=== PATIENT | male | born 1950 | race Caucasian/White ===

== ENCOUNTER 2024-07-08 13:58 | Outpatient (CLI) | payer MEDICARE, OTHER, SELFPAY ==
--- NOTE | 2024-07-08 14:30 | MR_ITS ---
WS: [id number] MRI CERVICAL SPINE NONCONTRAST AND CONTRAST TECHNIQUE: Sagittal T1, T2 and STIR imaging. Axial T2, gradient, and fiesta imaging. Post gadolinium imaging obtained with fat saturation technique. CLINICAL INFORMATION: Neck Pain COMPARISON: None. FINDINGS: Straightening of the normal cervical lordosis in the upper cervical spine. Slight anterolisthesis C4 on C5, C5 on C6, C6 on C7, and C7 on T1. Cord signal is normal. Mild central canal stenosis C5-C7. No abnormal gadolinium enhancement. C2-C3: Mild facet arthropathy. Mild LEFT greater than RIGHT bony foraminal narrowing. C3-C4: Minimal disc bulge and osteophytic ridging. Moderate LEFT and mild RIGHT bony foraminal narrow ing. Moderate facet arthropathy worse on the LEFT. C4-C5: Minimal anterolisthesis. Moderate LEFT and mild RIGHT bony foraminal narrowing. Moderate facet arthropathy. C5-C6: Grade 1 anterolisthesis. Moderate facet arthropathy. Mild bilateral foraminal narrowing. Mild central canal stenosis. C6-C7: Mild central canal stenosis. Moderate LEFT and mild RIGHT foraminal narrowing. C7-T1: Mild central canal stenosis. Tiny central protrusion. Severe LEFT and moderate RIGHT foraminal narrowing. Shallow disc protrusions in the upper thoracic spine at T1-2 and T2-3. Mild central canal stenosis at T2-3. Visualized brain stem structures: Normal. Prevertebral soft tissues: Normal. MR/MR cervical spine wo/w [id number] IMPRESSION: 1. Straightening of the normal cervical lordosis with slight anterolisthesis C 4 on C5, C5 on C6, and C6 on C7. 2. Mild central canal stenosis C5-C6 C6-C7 and C7-T1 with slight contact of th e cervical cord at C7-T1. 3. Multilevel bony foraminal narrowing described above moderate at LEFT C3-4, LEFT C4-5, LEFT C5-6 and severe at LEFT C7-T1 4. Mild central canal stenosis T2-3 with a shallow central protrusion.
[2024-07-08] MEDS: gadobenate dimeglumine 20 mL vial IV (15:16)
== END 2024-07-08 13:59 | disposition home or self-care (01) ==
LOC: RAD 14:01
PROVIDERS: Visit Provider Orthopaedic Surgery
DX: M48.02 Spinal stenosis, cervical region (principal)
CPT/HCPCS: 72156; A9577

== ENCOUNTER → 2024-08-01 14:15 | Outpatient (BNVA) | payer MEDICARE, OTHER, SELFPAY | PROVIDERS: Visit Provider Orthopaedic Surgery | DX: Z01.818 Encounter for other preprocedural examination (principal); M47.22 Other spondylosis with radiculopathy, cervical region; M47.12 Other spondylosis with myelopathy, cervical region | CPT/HCPCS: 36415; 80053; 81001; 85025; 99214 ==

== ENCOUNTER → 2024-09-20 11:45 | Outpatient (BNVA) | payer MEDICARE, OTHER, SELFPAY | PROVIDERS: Visit Provider Family Medicine | DX: Z01.818 Encounter for other preprocedural examination (principal) | CPT/HCPCS: 80053; 81003; 85025 ==

== ENCOUNTER 2024-10-02 10:15 | Observation (INO) | payer MEDICARE, OTHER, SELFPAY ==
[2024-10-02] VITALS (25 sets, daily range): BP systolic 89–191; BP diastolic 49–159; PULSE 63–100; RESP 16–21; TEMP 36.2–37; O2SAT 91–99; BMI 45.8
--- NOTE | 2024-10-02 | XR_ITS ---
WS: [id number] Cervical spine, C-arm fluoroscopy views, 10/02/2024 Clinical Data: CHELLE PICS Comparison: Cervical spine, 06/04/2024 Findings: Dr. Angulo performed an anterior cervical disc fusion. XR/XR cervical spine 3V* [id number] Impression: Anterior cervical disc fusion
--- NOTE | 2024-10-02 05:57 | ANES.PREANE2 ---
Pre-Anesthetic Assessment Height/Weight: Height 6 ft Preop Diagnosis: Cervical spondylosis Operation Date: 10/02/24 07:00 Proposed Procedures p Anterior Cervical Discectomy & Fusion ACDF w/ Anterior Interbody Fusion w/ Cage w/ Instrumentation w/ Allograft w/ Navigation(Not Applicable) - Rhett Angulo, DO Was Beta Crispin taken within 24 hours: N/A Was Clonidine taken within 24 hours: N/A Social No alcohol and No tobacco Exam alert, oriented x 3, clear to auscultation bilaterally and regular rate & rhythm Airway Submandibular: within normal limits Cervical ROM: within normal limits Mallampati: Class III Dentition: full Comments: Comments: Implants on top Anesthetic Plan ASA status: 3 Anesthesia: General Other: No prior issues with anesthesia NPO since yesterday IMELDA on CPAP Hypertension on lisinopril?HCTZ and diltiazem Labs reviewed 09/20/2024 and acceptable for procedure METs greater than 4 Plan for GETA Medications/Allergies Home Medications Medication Instructions Recorded Confirmed Last Taken Type allopurinol 300 mg tablet 300 mg PO DAILY 08/01/24 10/02/24 10/02/24 History diltiazem HCl 240 mg capsule,24 240 mg PO DAILY 08/01/24 10/02/24 10/01/24 History hr,extended release doxycycline hyclate 20 mg tablet 20 mg PO BID 08/01/24 10/02/24 10/02/24 History gabapentin 400 mg capsule 400 mg PO BID 08/01/24 10/02/24 10/02/24 History lisinopril 20 1 tab PO DAILY 08/01/24 10/01/24 10/01/24 History mg-hydrochlorothiazide 12.5 mg tablet meloxicam 15 mg tablet 15 mg PO DAILY 08/01/24 10/01/24 09/26/24 History metronidazole 0.75 % topical cream 1 applic topical DAILY 08/01/24 10/01/24 Unknown History tamsulosin 0.4 mg capsule 0.4 mg PO DAILY 08/01/24 10/01/24 10/01/24 History finasteride 5 mg tablet 5 mg PO DAILY 09/20/24 10/02/24 10/02/24 History Bone Growth Stimulator #1 ea 09/30/24 Unknown Rx Allergies Allergy/AdvReac Type Severity Reaction Status Date / Time No Known Allergies Allergy Verified 09/20/24 11:28 [facility] Anesthesia Social History Smoking and tobacco/nicotine status: former use of tobacco/nicotine Data Anesthesia Cardiac Studies: No Data to Display
--- NOTE | 2024-10-02 06:11 | W.PM.OPSUD ---
Surgery/Procedure H&P Update DATE OF PROCEDURE: October 02, 2024 DATE H&P PERFORMED: 09/20/24 H&P UPDATE INFORMATION: I have reviewed H&P completed within last 30 days, I have examined patient prior to procedure and No changes to prior documentation PREOP DIAGNOSIS: Cervical radiculopathy PLANNED PROCEDURE: Operation Date: 10/02/24 07:00 Proposed Procedures p Anterior Cervical Discectomy & Fusion ACDF w/ Anterior Interbody Fusion w/ Cage w/ Instrumentation w/ Allograft w/ Navigation(Not Applicable) - Rhett Angulo DO
[2024-10-02] MEDS: sodium chloride 0.9% 1,000 ML 30 ML IV (06:25)
[2024-10-02] MEDS: ceFAZolin 3,000 MG in sodium chloride 0.9% (plus) 100 ML 200 MG IV (07:00)
[2024-10-02] MEDS: lidocaine-epi 1% 20 mL INJ INJECTION (08:26)
--- NOTE | 2024-10-02 09:54 | PM.OP ---
Operative Report Date of procedure: October 02, 2024 Pre-op diagnosis: Cervical radiculopathy Post-op diagnosis: same Procedure done: 1. Anterior diskectomy C5/6 2. Anterior discectomy C6/7 3. Insertion of cage C5/6 4. Insertion of Cage C6/7 5. Instrumentation with anterior plate from C5-C7 6. Use of allograft Surgeon: Rhett Angulo DO Estimated blood loss (mL): 50 Procedure: 1. Anterior diskectomy C5/6 2. Anterior discectomy C6/7 3. Insertion of cage C5/6 4. Insertion of Cage C6/7 5. Instrumentation with anterior plate from C5-C7 6. Use of allograft The patient was taken to the operating room, where he underwent general endotracheal anesthesia without complications. He was then positioned supine on the operating table, and all areas of impingement were well padded. The arms were carefully padded and tucked at his sides. A roll was placed between the shoulder blades.. An x-ray was done to determine the appropriate level for the skin incision. The entire neck was then sterilely prepped and draped in the usual fashion. Neuromonitoring was attached prior to prepping. A transverse skin incision was made and carried down to the platysma muscle. This was then split in line with its fibers. Blunt dissection was carried down medial to the carotid sheath and lateral to the trachea and esophagus until the anterior cervical spine was visualized. A needle was placed into a disc and an x-ray was done to determine its location. The longus colli muscles were then elevated bilaterally with the electrocautery unit. Self-retaining retractors were placed deep to the longus colli muscle. Attention was brought to the C5/6 level that was confirmed on x-ray. A caspar pin was placed into the C5 vertebrae and the C6 vertebrae. The disk space was then distracted. The microscope was then brought in. A radical anterior discectomies were performed at C5/6. This included complete removal of the anterior annulus, nucleus, and posterior annulus. The posterior longitudinal ligament was removed as were the posterior osteophytes. Foraminotomies were then accomplished bilaterally. This was done using a high speed sangita, kerrison rongeurs and curretes Once all of this was accomplished, the curved currette was used to check for any residual compression. The central canal was wide open as were the foramen. A high-speed bur was used to remove the cartilaginous endplates above and below the interspace. Bleeding cancellous bone was exposed. The disc space were measured and appropriate size cage were placed sterilely onto the field. Allograft graft was packed into the cages. The cage was then placed and there was good juxtaposition against the bleeding decorticated surfaces and good distraction of each interspace. Attention was brought to the next interspace. The Otterbein pins were removed. Bone wax was used to prevent any bleeding from occurring at the pin sites. Attention was brought to the C6/7 level that was confirmed on x-ray. A caspar pin was placed into the C6 vertebrae and the C7 vertebrae. The disk space was then distracted. The microscope was then brought in. A radical anterior discectomies were performed at C6/7. This included complete removal of the anterior annulus, nucleus, and posterior annulus. The posterior longitudinal ligament was removed as were the posterior osteophytes. Foraminotomies were then accomplished bilaterally. This was done using a high speed sangita, kerrison rongeurs and curretes Once all of this was accomplished, the curved currette was used to check for any residual compression. The central canal was wide open as were the foramen. A high-speed bur was used to remove the cartilaginous endplates above and below the interspace. Bleeding cancellous bone was exposed. The disc space were measured and appropriate size cage were placed sterilely onto the field. Allograft graft was packed into the cages. The cage was then placed and there was good juxtaposition against the bleeding decorticated surfaces and good distraction of each interspace. The Otterbein pins were removed. Bone wax was used to prevent any bleeding from occurring at the pin sites. The appropriate size anterior cervical locking plate was chosen and bent into gentle lordosis. Two screws were then placed into each of the vertebral bodies at C5, C6, and C7. There was excellent purchase. A final x-ray was done confirming good position of the hardware and Cages. The locking screws were then applied, also with excellent purchase. Following a final copious irrigation, there was good hemostasis and no dural leaks. The carotid pulse was strong. The wounds were then closed in layers using 2-0 Vicryl suture for the platysma muscle, 2-0 Vicryl suture for the subcutaneous tissue, and 4-0 monocryl suture in a subcuticular skin closure. Glue was placed followed by application of a sterile dressing. The drain was hooked to bulb suction. A soft collar was applied. The patient was then carefully returned to the supine position on his hospital bed where he was reversed and extubated and taken to the recovery room having tolerated the procedure well.
--- NOTE | 2024-10-02 11:12 | ANE.PACU2 ---
Inpatient post-anesthesia follow up: Airway intact: Yes Vital signs: Temperature 98.0 F Pulse Rate 72 Respiratory Rate 17 Blood Pressure 150/120 Pulse Oximetry 94 Oxygen Delivery Me thod Nasal Cannula Oxygen Flow Rate 1 Fraction of Inspir ed Oxygen Hydration adequate: Yes Nausea and vomiting: No Pain level: 1 Mental status: Baseline
[2024-10-02] MEDS: ketorolac 30 mg/mL INJ IVP (12:11)
[2024-10-02] MEDS: lactated ringers 1,000 ML 90 ML IV ×2 (12:11→22:37)
[2024-10-02] MEDS: HYDROcodone-acetaminophen 5-325 mg Tablet PO ×2 (12:59→18:30)
[2024-10-02] MEDS: ceFAZolin 2,000 mg SDV 2000 MG IVP ×2 (15:45→22:37)
--- NOTE | 2024-10-02 16:55 | PM.CONSULT ---
Providers/Reason For Consult Consulting Physician/Specialty*: Orthopedic Reason for Consult*: Hypertension Attending Physician: Rhett Angulo DO History of Present Illness History of Present Illness Brendon Hooper is a 74 year old male with a past medical history of hypertension, BPH, who presents [facility] for anterior discectomy C5/C6/c7, insertion of cage, use of allograft, hospitalist team was consulted due to elevated blood pressure. Patient reports a history of hypertension, he takes Cardizem, lisinopril hydrochlorothiazide relation, he has not taken his blood pressure medications this morning before surgery, denies any headache, no blurry vision, no nausea, no vomiting, no chest pain, no focal weakness. We discussed resuming his blood pressure medications, continue to monitor him, he is agreeable. He does report a history of bleeding, he has required a unit of blood in the past after knee replacement Review of Systems Eyes: Denies: change in vision Card: Denies: chest pain Resp: Denies: dyspnea Neuro: Denies: headache(s), weakness in extremities, Slurred speech present or difficulty communicating thoughts Medications/Allergies Home Medications Medication Instructions Recorded Confirmed Last Taken Type allopurinol 300 mg tablet 300 mg PO DAILY 08/01/24 10/02/24 10/02/24 History diltiazem HCl 240 mg capsule,24 240 mg PO DAILY 08/01/24 10/02/24 10/01/24 History hr,extended release doxycycline hyclate 20 mg tablet 20 mg PO BID 08/01/24 10/02/24 10/02/24 History gabapentin 400 mg capsule 400 mg PO BID 08/01/24 10/02/24 10/02/24 History lisinopril 20 1 tab PO DAILY 08/01/24 10/01/24 10/01/24 History mg-hydrochlorothiazide 12.5 mg tablet meloxicam 15 mg tablet 15 mg PO DAILY 08/01/24 10/01/24 09/26/24 History metronidazole 0.75 % topical cream 1 applic topical DAILY 08/01/24 10/01/24 Unknown History tamsulosin 0.4 mg capsule 0.4 mg PO DAILY 08/01/24 10/01/24 10/01/24 History finasteride 5 mg tablet 5 mg PO DAILY 09/20/24 10/02/24 10/02/24 History Bone Growth Stimulator #1 ea 09/30/24 10/02/24 Unknown Rx Allergies Allergy/AdvReac Type Severity Reaction Status Date / Time No Known Allergies Allergy Verified 09/20/24 11:28 Current Medications Generic Name Dose Route Start Last Admin Trade Name Anderson PRN Reason Stop Dose Admin Hydrocodone Bitart/Acetaminophen 1 - 2 tab 10/02/24 09:47 10/02/24 12:59 Hydrocodone-Acetaminophen 5-325 Mg Tablet PO 1 tab Q4H PRN Administration MODERATE TO SEVERE PAIN Cefazolin Sodium 2,000 mg 10/02/24 15:00 10/02/24 15:45 Cefazolin 2,000 Mg Sdv IVP 10/03/24 07:01 2,000 mg Q8H SHANAE Administration Protocol Lactated Ringer's 1,000 mls @ 90 mls/hr 10/02/24 10:00 10/02/24 12:11 Lactated Ringers IV 90 mls/hr .[id number] SHANAE Administration PFSH Acute PFSH: Medical History (Updated 10/02/24 @ 17:17 by Adonay Woods MD) History of hypertension Surgical History (Updated 10/02/24 @ 16:59 by Adonay Woods MD) History of carpal tunnel surgery left hand 2010 History of reverse total replacement of right shoulder joint History of left knee replacement 2009 Family History (Updated 10/02/24 @ 17:04 by Adonay Woods MD) Father Bleeding disorder Social History Smoking and tobacco/nicotine status: former use of tobacco/nicotine Vitals/I&O/Wt Last Vital Signs Temp 98.0 F 10/02/24 16:22 Pulse 72 10/02/24 16:22 Resp 17 10/02/24 16:22 BP 150/120 10/02/24 16:49 Pulse Ox 94 10/02/24 16:22 O2 Del Method Nasal Cannula 10/02/24 16:22 O2 Flow Rate 1 10/02/24 16:22 10/02/24 10/02/24 10/02/24 06:59 14:59 22:59 Intake Total 1140 / 1140 Output Total 525 / 525 Balance 615 / 615 Weight last 48 hrs Weight 153.314 kg Weight 153.314 kg Physical Exam Const: COMMON NORMALS: no acute distress and patient oriented x3 HENMT: COMMON NORMALS: normocephalic HEAD & SCALP: normocephalic Eye: COMMON NORMALS: Equal, round and reactive pupils present PUPIL: Yes Equal, round and reactive pupils present Neck/C-Spine: OTHER: Currently in a cervical collar Resp: COMMON NORMALS: normal respiratory effort, No retractions, No use of accessory muscles and clear to auscultation bilaterally AUSCULTATION: clear to auscultation bilaterally Cardio: COMMON NORMALS: regular rate, regular rhythm, S1 normal heart sound present and S2 normal heart sound present RATE: regular rate RHYTHM: regular rhythm HEART SOUNDS: S1 normal heart sound present and S2 normal heart sound present GI: COMMON NORMALS: Normal to inspection, nondistended, normoactive bowel sounds present and non-tender Extremity: COMMON NORMALS: no pedal edema Neuro: COMMON NORMALS: patient oriented x3, CN's II-XII intact bilaterally, moves all extremities and no focal motor deficits Psych: COMMON NORMALS: mental status grossly normal A&P Assessment and plan (1) Hypertensive urgency: Plan Hypertensive urgency -Resume home blood pressure medications -Resume diltiazem 240 mg daily -Resume lisinopril/hydrochlorothiazide combination -Monitor blood pressures closely -Will consider additional blood pressure medications based on clinical progress -No chest pain, no shortness of breath, no headache, blurry vision, no focal neurologic deficits Consult Attestations Medical Necessity Statement: Patient requires hospitalization for neck surgery, consultation for hypertensive urgency Diagnoses Hypertensive urgency I16.0
[2024-10-02] MEDS: hydroCHLOROthiazide 25 mg Tablet 12.5 MG PO (17:01)
[2024-10-02] MEDS: lisinopril 20 mg Tablet PO (17:01)
[2024-10-02] MEDS: dilTIAZem ER (24HR) 240 mg Capsule PO (17:01)
[2024-10-02] MEDS: docusate sodium 100 mg Capsule PO (17:02)
[2024-10-02] MEDS: gabapentin 400 mg Capsule PO (17:02)
[2024-10-03] MEDS: HYDROcodone-acetaminophen 5-325 mg Tablet PO (03:58)
[2024-10-03 04:15] VITALS: BP 154/90; PULSE 76; RESP 20; TEMP 36.8; O2SAT 91
[2024-10-03 05:35] LABS: Basophils % 0.2 %; Eosinophils % 0.2 %; Hematocrit 39.8 % (37-53); Lymphocytes # 1.5 10^3/uL (0.8-4.8); Lymphocytes % 10.6 %; Mean Corpuscular HGB Conc 33.7 g/dL (30-55); Mean Corpuscular Hemoglobin 32.9 pg (27-33); Mean Corpuscular Volume 97.8 fl (82-101); Mean Platelet Volume 9.9 fL (7.4-10.4); Monocytes % 6.9 %; Neutrophils # 11.42 10^3/uL (1.8-7.7); Neutrophils % 81.2 %; Nucleated Red Blood Cells % 0 %; Platelet Count 294 10^3/cmm (157-399); Red Blood Count 4.07 10^6/uL (3.85-5.65); Red Cell Distribution Width 13.5 % (12.1-15.1); White Blood Count 14.06 10^3/uL (3.29-11.43)
[2024-10-03 05:56] LABS: Alanine Aminotransferase 15 U/L (0-41); Albumin Level 3.7 g/dL (3.5-5.2); Alkaline Phosphatase 80 U/L (40-130); Anion Gap 14.3 (5-19); Aspartate Amino Transferase 24 U/L (0-40); Blood Urea Nitrogen 20 mg/dL (8-23); Calcium 8.4 mg/dL (8.5-10.5); Carbon Dioxide 26 mmol/L (22-29); Chloride 105 mmol/L (98-107); Creatinine Clr Calc Pharmacy 127.3873; Globulin 2.6 g/dL (1.3-4.6); Glucose 148 mg/dL (65-115); Osmolality Calculated 297 mOsm/kg (285-295); Potassium 4.3 mmol/L (3.5-5.1); Sodium 141 mmol/L (136-145); Total Bilirubin 0.4 mg/dL (0.15-1.2); Total Protein 6.3 g/dL (6.6-8.7)
[2024-10-03] MEDS: ceFAZolin 2,000 mg SDV 2000 MG IVP (06:17)
[2024-10-03 07:35] VITALS: BP 157/85; PULSE 75; RESP 17; TEMP 36.8; O2SAT 96
--- NOTE | 2024-10-03 08:24 | P.DS_ITS ---
Discharge Providers Date of Admission: 10/02/24 10:15 Date of Discharge: October 03, 2024 Attending Provider at Admission: Rhett Angulo DO Attending Provider at Discharge: Rhett Angulo DO Diagnoses at Discharge Discharge Diagnosis (1) Hypertensive urgency: Status: Acute Reason for Visit Reason for Visit: M54.12 Physical Exam Narrative: Patient doing well complaining of numbness in his right hand but improving. Having somewhat difficulty swallowing but is able to get food down. Discharge Data Studies Completed and Pending Pending at discharge Category Date Time Status C-arm Fluoroscopy 16355 Routine Exams 10/02/24 06:09 Taken Complete Blood Count w/Auto AM LABS Lab 10/04/24 04:00 Ordered Complete Blood Count w/Auto AM LABS Lab 10/05/24 04:00 Ordered Comprehensive Metabolic Panel AM LABS Lab 10/04/24 04:00 Ordered Comprehensive Metabolic Panel AM LABS Lab 10/05/24 04:00 Ordered Laboratory Results WBC 14.06 10^3/uL (3.29-11.43) H 10/03/24 05:10 RBC 4.07 10^6/uL (3.85-5.65) 10/03/24 05:10 Hgb 13.40 g/dL (11.27-16.99) 10/03/24 05:10 Hct 39.8 % (37-53) 10/03/24 05:10 MCV 97.8 fl (82-101) 10/03/24 05:10 MCH 32.9 pg (27-33) 10/03/24 05:10 MCHC 33.7 g/dL (30-55) 10/03/24 05:10 RDW 13.5 % (12.1-15.1) 10/03/24 05:10 Plt Count 294 10^3/cmm (157-399) 10/03/24 05:10 MPV 9.9 fL (7.4-10.4) 10/03/24 05:10 Neut % (Auto) 81.2 % 10/03/24 05:10 Lymph % (Auto) 10.6 % 10/03/24 05:10 Page % (Auto) 6.9 % 10/03/24 05:10 Eos % (Auto) 0.2 % 10/03/24 05:10 Baso % (Auto) 0.2 % 10/03/24 05:10 Neut # (Auto) 11.42 10^3/uL (1.8-7.7) H 10/03/24 05:10 Lymph # (Auto) 1.5 10^3/uL (0.8-4.8) 10/03/24 05:10 Page # (Auto) 1.0 10^3/uL (0.2-0.9) H 10/03/24 05:10 Eos # (Auto) 0.0 10^3/uL (0.0-0.8) 10/03/24 05:10 Baso # (Auto) 0.0 10^3/uL (0.0-0.1) 10/03/24 05:10 Nucleated RBC % (auto) 0 % 10/03/24 05:10 Nucleated RBCs # 0.0 /100WBC 10/03/24 05:10 Sodium 141 mmol/L (136-145) 10/03/24 05:10 Potassium 4.3 mmol/L (3.5-5.1) 10/03/24 05:10 Chloride 105 mmol/L (98-107) 10/03/24 05:10 Carbon Dioxide 26 mmol/L (22-29) 10/03/24 05:10 Anion Gap 14.3 (5-19) 10/03/24 05:10 BUN 20 mg/dL (8-23) 10/03/24 05:10 Creatinine 0.8 mg/dL (0.7-1.2) 10/03/24 05:10 GFR Calculation Not Reportable 10/03/24 05:10 Glucose 148 mg/dL (65-115) H 10/03/24 05:10 Calculated Osmolality 297 mOsm/kg (285-295) H 10/03/24 05:10 Calcium 8.4 mg/dL (8.5-10.5) L 10/03/24 05:10 Total Bilirubin 0.4 mg/dL (0.15-1.2) 10/03/24 05:10 AST 24 U/L (0-40) 10/03/24 05:10 ALT 15 U/L (0-41) 10/03/24 05:10 Alkaline Phosphatase 80 U/L (40-130) 10/03/24 05:10 Total Protein 6.3 g/dL (6.6-8.7) L 10/03/24 05:10 Albumin 3.7 g/dL (3.5-5.2) 10/03/24 05:10 Globulin 2.6 g/dL (1.3-4.6) 10/03/24 05:10 Vitals Last Vital Signs Temp 98.3 F 10/03/24 07:35 Pulse 75 10/03/24 07:35 Resp 17 10/03/24 07:35 BP 157/85 10/03/24 07:35 Pulse Ox 96 10/03/24 07:35 O2 Del Method Room Air 10/03/24 07:35 O2 Flow Rate 1 10/02/24 16:22 Discharge Plan Discharge Patient Disposition: Home Condition: Stable Prescriptions: New hydrocodone-acetaminophen 5-325 mg tablet 1 - 2 tab PO .Q4-6H Qty: 40 0RF Continued diltiazem HCl 240 mg capsule,extended release 24 hr 240 mg PO DAILY lisinopril-hydrochlorothiazide 20-12.5 mg tablet 1 tab PO DAILY allopurinol 300 mg tablet 300 mg PO DAILY metronidazole 0.75 % cream 1 applic topical DAILY gabapentin 400 mg capsule 400 mg PO BID tamsulosin 0.4 mg capsule 0.4 mg PO DAILY doxycycline hyclate 20 mg tablet 20 mg PO BID finasteride 5 mg tablet 5 mg PO DAILY (DME) Bone Growth Stimulator See Rx Instructions .Route .MEDSUPPLY Qty: 1 0RF Rx Instructions: As directed Held meloxicam 15 mg tablet 15 mg PO DAILY Hold Instructions: Resume on 10/04/24. Discharge Orders: Discharge Order (Routine); Ordered 10/03/24 Ordered By: Rhett Angulo Discharge Diet: Advance as tolerated Discharge Activity: Limit activity as instructed Patient Instructions: Acute Wound Care (DC), Opioid Safety, Post Anesthesia Care Activity Restrictions/Additional Instructions: Thank you for choosing [facility] for your care! The following is a list of instructions, from your provider, to follow upon your discharge to ensure you have the optimal recovery from your recent injury or surgery. Anterior Cervical Discectomy and Fusion: What to Expect at Home Your Recovery Follow-up care is a [place] part of your treatment and safety. Be sure to make and go to all appointments, and call your doctor if you are having problems. If you do not already have a follow-up appointment made, call office in the next 1-3 days to make follow up appointment for 2 weeks at [phone]. It is also a good idea to know your test results and keep a list of the medicines you take. You can expect your neck to feel stiff or sore after surgery. This should improve in the weeks after surgery. But it may take 4 to 6 months for you to get better completely. You may have trouble sitting or standing in one position for very long and may need pain medicine in the weeks after your surgery. It may take 4 to 6 weeks to get back to your usual activities, but it may depend on what kind of surgery you had. Your throat will feel sore and it may be difficult to swallow for the first 3 days after your surgery. As long as you can get liquids down without difficulty, this should slowly improve, otherwise call our office or seek medical attention if it becomes increasingly difficult to get anything down including liquids. Avoid hot liquids for first 3-5 days. Soothing foods/liquids such as jello, pudding, and luke warm soups are recommended until swallowing improves. Staying elevated will also help, it's advised you keep propped up at while sleeping to help reduce the swelling. You may use an ice pack directly on your incision or around it on the front of your neck, using a cloth to protect your skin; and a heating pad to the back of your neck as needed. Do not use over the counter anti-inflammatory medications (Ibuprofen, Motrin, Al yi, Advil, etc) Taking these meds after having a fusion can delay fusion rates, we recommend you avoid them for the first 3 [address] your [address] Angulo may advise you to work with a physical therapist to strengthen the muscles around your neck and back - this will be discussed at your follow - up appointments. The pain or numbness you were having in your arms before surgery should get better or go away completely. This care sheet gives you a general idea about how long it will take for you to recover. But each person recovers at a different pace. Follow the steps below to get better as quickly as possible. How can you care for yourself at home? Activity ? Rest when you feel tired. Getting enough sleep will help you recover. ? Try to walk each day. Start by walking a little more than you did the day before. Bit by bit, increase the amount you walk. Walking boosts blood flow and helps prevent pneumonia and constipation. Walking may also decrease your muscle soreness after surgery. ? No lifting anything that is more that 5 pounds. This may include heavy grocery bags and milk containers, a heavy briefcase or backpack, cat litter or dog food bags, a child, or a vacuum overhead cleaner maintainer. ? Avoid strenuous activities, such as bicycle riding, jogging, weightlifting, or aerobic exercise, until your doctor says it is okay. ? Do not drive until your follow-up visit after your surgery, or until your doctor says it isokay. ? Avoid taking long car trips for 2 to 4 weeks after surgery. Your neck may become tired and painful from sitting too long in one position. ? You will probably need to take 4 to 6 weeks off from work. It depends on the type of work you do and how you feel. ? You may have sex as soon as you feel able, but avoid positions that put stress on your neck or cause pain. Diet ? You can eat your normal diet. If your stomach is upset, try bland, low-fat foods like plain rice, broiled chicken, toast, and yogurt ? Drink plenty of fluids. If you have kidney, heart, or liver disease and have to limit fluids, talk with your doctor before you increase the amount of fluids you drink. ? You may notice that your bowel movements are not regular right after your surgery. This is common. Try to avoid constipation and straining with bowel movements. You may want to take a fiber supplement every day. If you have not had a bowel movement after a couple of days, ask your doctor about taking a mild laxative. Medicines ? Take pain medicines exactly as directed. 1. If Dr. Angulo gave you a prescription medicine for pain, take lt as prescribed. 2. Do not take two or more pain medicines at the same time unless the doctor told you to. Many pain medicines have acetaminophen, which is Tylenol. Too much acetaminophen {Tylenol) can be harmful. 3. If you think your pain pill is making you sick to your stomach: 4. Take your pills after meals (unless your doctor has told you not to). 5. Ask your Dr. for a different pain pill. Incisioncare ? Remove your dressing 48hours after your surgery. Ok to shower and get the incision wet. Do not overtly wash your incision. When done, pad dry, leave open to air thereafter. Avoid creams and ointments directly on your incision. ? Your sutures in the incision will dissolve and fall out on their own. ? Keep the area clean and dry. You may cover it with a gauze bandage if it weeps or rubs against clothing; if you choose to do this, change the dressing everyday. Other instructions ? Use a heating pad, hot water bottle, or gentle massage on your back to reduce stiffness. Avoid putting heat on your incision When should you call for help? ? Call 911 anytime you think you may need emergency care. For example, call if: ? You pass out (lose consciousness). ? You have sudden chest pain and shortness of breath, or you cough upblood. ? You cannot swallow. ? You have severe pain in your neck or back. ? Call your Dr. or seek immediate medical care if: ? You have pain that does not get better after you take pain pills. ? You have loose stitches, or your incision comes open. ? You have blood or fluid draining from the incision. ? You have signs of infection, such as: 1. Increased pain, swelling, warmth, or redness. 2. Red streaks leading from the site. 3. Pus draining from the site. 4. Swollen lymph nodes in your neck or armpits. 5. A fever. ? You have severe pain in your arms. ? You have new or increased weakness or numbness in your arms. ? Watch closely for any changes in your health, and be sure to contact your doctor if: ? You do not have a bowel movement after taking a laxative. Discharge Attestations Time Spent in Discharge Care*: less than 30 min Quality Metrics Clinical Quality Measures [ No reported AMI, CVA or VTE this stay] Coding Level of Care Code Acute Code for Chg Fwd Diagnoses Hypertensive urgency I16.0
[2024-10-03] MEDS: gabapentin 400 mg Capsule PO (09:50)
[2024-10-03] MEDS: docusate sodium 100 mg Capsule PO (09:50)
[2024-10-03] MEDS: finasteride 5 mg Tablet PO (09:50)
[2024-10-03] MEDS: lisinopril 20 mg Tablet PO (09:50)
[2024-10-03] MEDS: allopurinol 300 mg Tablet PO (09:50)
--- NOTE | 2024-10-03 11:32 | PC.NURSE ---
Hemovac removed by Jacklyn Akins RN and [employer] students. Tolerated well.
[2024-10-03 11:35] VITALS: BP 157/85; PULSE 75; RESP 17; TEMP 36.8; O2SAT 96
== END 2024-10-03 11:37 | disposition home or self-care (01) ==
LOC: MEDSURG 10:16
PROVIDERS: Family Medicine; Admitting Provider Orthopaedic Surgery; Visit Provider Orthopaedic Surgery
PROC: 0RB30ZZ Excision of Cervical Vertebral Disc, Open Approach (ICD-10-PCS; CPT 22551; principal; 2024-10-02 07:00)
DX: M54.12 Radiculopathy, cervical region (principal); I10 Essential (primary) hypertension; N40.0 Benign prostatic hyperplasia without lower urinary tract symptoms; Z87.891 Personal history of nicotine dependence; I16.0 Hypertensive urgency; G47.33 Obstructive sleep apnea (adult) (pediatric)
CPT/HCPCS: 22551; 22552; 20930; 22845; 22853 ×2; 36415; 72040; 76000; 80053; 85025; 97116; 97161; 97530; C1713; C1763; C9359; G0378; J0131; J0690; J1100; J1171; J1885; J2405; J2704; J2710; J3010; J3490; J7030; J7120

== ENCOUNTER → 2024-10-22 12:51 | Outpatient (BNVA) | payer MEDICARE, OTHER, SELFPAY | PROVIDERS: Visit Provider Orthopaedic Surgery | DX: Z98.1 Arthrodesis status (principal) | CPT/HCPCS: 99024 ==

== ENCOUNTER → 2024-11-05 12:59 | Outpatient (BNVA) | payer MEDICARE, OTHER, SELFPAY | PROVIDERS: Visit Provider Orthopaedic Surgery | DX: Z98.1 Arthrodesis status (principal) | CPT/HCPCS: 72040; 99024 ==

== ENCOUNTER → 2024-12-19 12:53 | Outpatient (BNVA) | payer MEDICARE, OTHER, SELFPAY | PROVIDERS: Visit Provider Orthopaedic Surgery | DX: Z98.1 Arthrodesis status (principal) | CPT/HCPCS: 72040; 99024 ==

== ENCOUNTER → 2025-03-18 13:01 | Outpatient (BNVA) | payer MEDICARE, OTHER, SELFPAY | PROVIDERS: Visit Provider Orthopaedic Surgery | DX: Z98.1 Arthrodesis status (principal) | CPT/HCPCS: 72040; 99213 ==

== ENCOUNTER → 2025-09-16 12:50 | Outpatient (BNVA) | payer MEDICARE, SELFPAY | PROVIDERS: Visit Provider Orthopaedic Surgery | DX: Z47.89 Encounter for other orthopedic aftercare (principal); Z98.1 Arthrodesis status | CPT/HCPCS: 72040; 99213 ==